=== PATIENT | female | born 1990 | race Caucasian/White ===

== ENCOUNTER 2020-11-17 17:45 | Outpatient (CLI) | payer SELFPAY ==
[2020-11-17 18:27] VITALS: BP 107/68
[2020-11-17 18:43] LABS: BILIRUBIN,URINE NEGATIVE (NEGATIVE); COLOR,URINE YELLOW; GLUCOSE, URINE (UA) NEGATIVE (NEGATIVE); KETONES,URINE 1+ (NEGATIVE); LEUKOCYTE ESTERASE ,URINE 2+ (NEGATIVE); NITRITE,URINE NEGATIVE (NEGATIVE); PROTEIN,URINE TRACE (NEGATIVE)
[2020-11-17 18:50] LABS: CLARITY,URINE SL CLOUDY
[2020-11-17 18:51] LABS: BACTERIA,URINE FEW /HPF
[2020-11-17] MEDS ORDERED: ACETAMINOPHEN 500 MG TAB (TYLENOL) PO ONE (19:15)
[2020-11-17] MEDS ORDERED: NS IV 1000 ML 1,000 ML IV SCH (19:15)
[2020-11-17] MEDS ORDERED: NS IV 1000 ML 1,000 ML ONE (19:18)
[2020-11-17] MEDS ORDERED: ACETAMINOPHEN 500 MG TAB (TYLENOL) ONE (19:19)
[2020-11-17 20:45] VITALS: BP 100/60
--- NOTE | 2020-11-18 08:31 | Physician Query-Final Dx ---
KELECHI AHSTON 11/18/20 0831: Clinic Account Progress/Dx Physician Query: Please give diagnosis Please include # weeks gestation Date of Service Nov 17, 2020 at 17:45 MARIANNE BURLESON DO 11/22/20 0848: Clinic Account Progress/Dx DIAGNOSIS: Diagnosis 37 week GA vaginal discharge KELECHI ASHTON Nov 18, 2020 08:31 MARIANNE BURLESON DO Nov 22, 2020 08:48
== END 2020-11-17 20:45 | disposition home or self-care (01) ==
LOC: WSo 17:45 → LDRP 17:47 → WSo 20:45
PROVIDERS: ATTEND Family Medicine
DX: O42.90 Premature rupture of membranes, unspecified as to length of time between rupture and onset of labor, unspecified weeks of gestation (principal); Z3A.00 Weeks of gestation of pregnancy not specified
CPT/HCPCS: 81000; 87088; 96360; G0463; 99214